=== PATIENT | female | born 1985 | race Caucasian/White ===

== ENCOUNTER 2016-09-28 18:30 | Outpatient (CLI) | payer MEDICAID | END 2016-09-28 18:31 | disposition critical access hospital (66) | DX: R22.1 Localized swelling, mass and lump, neck (principal) | CPT/HCPCS: A0425; A0427 ==

== ENCOUNTER 2016-09-28 18:49 | Observation (INO) | payer MEDICAID ==
[2016-09-28] MEDS ORDERED: methylPREDNISolone SUCCINATE 125 MG/2 ML VIAL IVP ONE (22:26)
[2016-09-28] MEDS ORDERED: methylPREDNISolone SUCCINATE 125 MG/2 ML VIAL IVP STA (22:26)
[2016-09-28] MEDS ORDERED: diphenhydrAMINE 25 MG CAPSULE PO PRN (22:42)
[2016-09-28] MEDS ORDERED: SODIUM CHLORIDE FLUSH 0.9% 10 ML SYRINGE IVP PRN (22:42)
[2016-09-28] MEDS ORDERED: SODIUM CHLORIDE 0.9% 1,000 ML IV SCH (23:00)
[2016-09-29] MEDS: FAMOTIDINE 20 MG TABLET PO SCH ×2 (00:03→09:48)
[2016-09-29] MEDS ORDERED: GABAPENTIN 400 MG CAPSULE PO SCH (01:00)
[2016-09-29] MEDS: hydroCHLOROthiazide 12.5 MG CAPSULE PO SCH ×2 (01:04→09:49)
[2016-09-29] MEDS: lamoTRIgine 100 MG TABLET PO SCH ×2 (01:05→09:49)
[2016-09-29] MEDS: PANTOPRAZOLE 40 MG TABLET PO SCH ×2 (01:05→09:48)
[2016-09-29] MEDS ORDERED: SODIUM CHLORIDE FLUSH 0.9% 10 ML SYRINGE IVP SCH (06:00)
[2016-09-29] MEDS ORDERED: POLYETHYLENE GLYCOL 3350 17 GM PACKET PO SCH (09:00)
[2016-09-29] MEDS ORDERED: hydroCHLOROthiazide 12.5 MG CAPSULE PO SCH (09:00)
[2016-09-29] MEDS ORDERED: GABAPENTIN 300 MG CAPSULE PO SCH (21:00)
[2016-09-29] MEDS ORDERED: predniSONE 20 MG TABLET PO SCH (23:00)
== END 2016-09-29 10:02 | disposition home or self-care (01) ==
DX: K14.8 Other diseases of tongue (principal); T78.09XA Anaphylactic reaction due to other food products, initial encounter; R01.1 Cardiac murmur, unspecified; I10 Essential (primary) hypertension; F32.9 Major depressive disorder, single episode, unspecified
CPT/HCPCS: 81025; 96361; 96374; 99284; A9270; G0378